=== PATIENT | male | born 2000 | race African-American/Black ===

== ENCOUNTER 2022-10-12 10:16 | Emergency (ER) | payer OTHER, SELFPAY ==
[2022-10-12 10:32] VITALS: BP 126/79; PULSE 61; RESP 17; TEMP 36.2; O2SAT 99
--- NOTE | 2022-10-12 10:33 | ED.SKABFB ---
HPI - Skin/Abscess/Foreign Bdy General Chief complaint: Skin/Abscess/Foreign Body Stated complaint: Rash on face and foot Time Seen by Provider: 10/12/22 10:34 Source: patient Mode of arrival: ambulatory Limitations: no limitations History of Present Illness HPI narrative: Gerald is a 22-year-old male patient presenting to the clinic with complaints of a rash on his face, hands, and on his foot. He reports the rash on his foot is now draining, red, and swollen. States it is painful to walk. Has itchy rash on bilateral hands and around bilateral eyes. Denies any new environmental changes. History of eczema. Related Data Allergies Allergy/AdvReac Type Severity Reaction Status Date / Time No Known Allergies Allergy Verified 10/12/22 10:32 Review of Systems Review of Systems: Pertinent positives per HPI. Patient denies any fever, chills, headache, visual changes, dizziness, cough, runny nose, sore throat, shortness of breath, chest pain, palpitations, nausea, vomiting, diarrhea, constipation, abdominal pain, or any urinary issues. PMFSH Comments At the time of my signature, I reviewed and agree with the nursing past medical, surgical, social, and family history. There is no relevant family history pertinent to the patient complaint. Exam Narrative: General: Well-developed, well nourished, in no apparent distress Head: Normocephalic, atraumatic. Cardio: Regular rate and rhythm, s1 and s2 normal, no murmur appreciated. Resp: Clear to auscultation bilaterally, no rhonchi, rales, wheezing or rubs. Integumentary: [place], warm, and dry, scaly itchy dry rash to bilateral upper and lower eyelids, bilateral hands, and right medial plantar foot-rash to the foot is red with mild swelling and induration- no active drainage. Mild tenderness to palpation Course Course Emergency Course: Portions of this record may have been created with voice recognition software. Level of Care: Express Care Visit Vital Signs Vital signs: Vital signs reviewed MDM - Skin/Abscess/Foreign Bdy MDM Narrative Medical decision making narrative: At the time of visit patient is resting comfortably on the exam table. I suspect patient may have a secondary infection to his right foot due to scratching his dermatitis. Patient has dermatitis to bilateral eyelids and hands. Will send in prescription for some triamcinolone cream, doxycycline, and mupirocin cream. Supportive measures were discussed with the patient he voiced understanding discharge instructions agrees to treatment plan. Differential Diagnosis Differential diagnosis: Likely abscess of skin or subcutaneous tissue, urticaria, cellulitis, eczema, insect bites and contact dermatitis Discharge Plan Discharge Clinical Impression: Allergic dermatitis of upper and lower lids of both eyes, Atopic dermatitis of both hands, Skin infection Patient Disposition: Home, Self-Care Condition: Stable Instructions: Antibiotic Form, Wound Infection (ED), Dermatitis (ED) Additional Instructions: Apply triamcinolone cream as directed-face and hands Apply mupirocin cream as directed to your right foot Take doxycycline as prescribed Avoid hot showers Moist dry skin twice daily using Cetaphil, Lubriderm, or Aquaphor lotion Avoid scratching and this can cause infection May take benadryl 25-50mg every 6 hours as needed for itching. Follow up with your PCP in 3-5 days if symptoms persist or sooner if they worsen Go to the Emergency Room if symptoms worsen- fever, rash spreading with treatment, shortness of breath, tongue swelling, drooling, or chest pain Prescriptions: New triamcinolone acetonide 0.1 % cream 1 applic topical BID 7 Days Qty: 30 0RF mupirocin 2 % ointment 1 applic topical BID 7 Days Qty: 22 0RF doxycycline hyclate 100 mg capsule 100 mg PO BID 7 Days Qty: 14 0RF Follow-up/Referrals: PHYSICIAN,[employer] [employer] [Primary Care Provider] - Time of Disposition: 1
== END 2022-10-12 10:54 | disposition home or self-care (01) ==
PROVIDERS: Emergency Provider Nurse Practitioner Family
DX: L23.9 Allergic contact dermatitis, unspecified cause (principal); L20.9 Atopic dermatitis, unspecified; L08.9 Local infection of the skin and subcutaneous tissue, unspecified
CPT/HCPCS: 99213; G0463

== ENCOUNTER 2022-12-06 13:10 | Emergency (ER) | payer OTHER, SELFPAY | END 2022-12-06 15:50 | disposition home or self-care (01) | LOC: EXPCOLL 12-14 11:20 | PROVIDERS: Emergency Provider Registered Nurse | DX: K29.70 Gastritis, unspecified, without bleeding (principal) | CPT/HCPCS: 99211; G0463 ==

== ENCOUNTER 2022-12-09 18:09 | Emergency (ER) | payer OTHER, SELFPAY ==
[2022-12-09 18:20] VITALS: BP 131/69; PULSE 54; RESP 18; TEMP 38; O2SAT 98
--- NOTE | 2022-12-09 18:34 | ED.MALEGU ---
HPI - Male Genitourinary General Chief complaint: Urogenital-Male Stated complaint: STD Time Seen by Provider: 12/09/22 18:28 Source: patient and RN notes reviewed Mode of arrival: ambulatory Limitations: no limitations History of Present Illness HPI Narrative: Patient presents today complaining of a 1-2 day history of dysuria. Denies any additional symptoms to include scrotal pain or swelling, urethral discharge, penile or scrotal sores, or any additional symptoms. He has had unprotected intercourse with 1 female partner for the past month. No history of STIs in the past. Related Data Allergies Allergy/AdvReac Type Severity Reaction Status Date / Time No Known Allergies Allergy Verified 12/09/22 18:30 Review of Systems Review of Systems: CONSTITUTIONAL: Denies body aches, fever, chills, or sweats. EYES: Denies visual changes, redness, or discharge. ENT: Denies rhinorrhea, congestion, sore throat, or otalgia. CARDIOVASCULAR: Denies chest pain, palpitations, or edema. RESPIRATORY: Denies cough or dyspnea. GASTROINTESTINAL: Denies abdominal pain, nausea, vomiting, or diarrhea. GENITOURINARY: Denies hematuria.+ dysuria SKIN: Denies rash, itching, or wounds. MUSCULOSKELETAL: Denies back pain, joint pain, or myalgia. NEUROLOGIC: Denies headache, numbness, tingling, or weakness. PSYCH: Denies depression or anxiety. PMFSH Comments At time of signature, I have reviewed and agree with nursing past medical, surgical, social and family history unless otherwise noted. Please see nursing chart for further information. There is no relevant family history pertinent to the presenting complaint Exam Narrative: GENERAL: Well-appearing, well-nourished, and in no acute distress. HEAD: Normocephalic, atraumatic. EYES: EOMI. No redness or drainage. Conjunctivae normal. ENT: Mucous membranes pink and moist. NECK: Normal AROM. CHEST: No respiratory distress. : erythematous urethral meatus noted. No external lesions. No swelling of the testicles or scrotum. No erythema of the scrotum noted. No urethral discharge noted. MUSCULOSKELETAL: No bony tenderness. EXTREMITIES: Normal range of motion. No edema. SKIN: Warm, dry, no rash. Capillary refill normal. Normal skin turgor. NEURO: No focal deficits. Alert and oriented x3. Gait steady. PSYCH: Normal affect. No signs of depression or anxiety. Course Course Level of Care: Express Care Visit Vital Signs Vital signs: Vital Signs Temperature 100.4 F H 12/09/22 18:20 Pulse Rate 54 L 12/09/22 18:20 Respiratory Rate 18 12/09/22 18:20 Blood Pressure 131/69 12/09/22 18:20 Pulse Oximetry 98 12/09/22 18:20 Oxygen Delivery Room Air 12/09/22 18:20 Temperature 100.4 F H 12/09/22 18:20 Pulse Rate 54 L 12/09/22 18:20 Respiratory Rate 18 12/09/22 18:20 Blood Pressure 131/69 12/09/22 18:20 Pulse Oximetry 98 12/09/22 18:20 Oxygen Delivery Room Air 12/09/22 18:20 Reviewed. Pt has been instructed to follow up with his PCP regarding his elevated blood pressure today. MDM - Male Genitourinary MDM Narrative Medical decision making narrative: Test pending for gonorrhea, chlamydia, Trichomonas. Will treat with Rocephin, doxycycline, and Flagyl. Discussed abstinence until tests result. Anticipatory guidance given. Differential Diagnosis Differential diagnosis: Likely urinary tract infection, urethritis and other (Gonorrhea, chlamydia, Trichomonas) Lab Data Labs: Lab Results 12/09/22 Range/Units 18:22 C.trachomatis RNA (TMA) Pending N.gonorrhoeae RNA (TMA) Pending T. vaginalis Amp RNA Pending Critical Care Time Critical Care Time Critical Care Time: No Discharge Plan Discharge Clinical Impression: Concern about STD in male without diagnosis Patient Disposition: Home, Self-Care Condition: Stable Instructions: Chlamydia (ED), Gonorrhea (ED), Trichomoniasis (ED) Additional Instructions: Your
[2022-12-09] MEDS: cefTRIAXone 500 MG, LIDOCAINE HCL 1% LOCAL INJ 1 ML IM (18:45)
== END 2022-12-09 19:05 | disposition home or self-care (01) ==
PROVIDERS: Emergency Provider Nurse Practitioner
DX: Z20.2 Contact with and (suspected) exposure to infections with a predominantly sexual mode of transmission (principal)
CPT/HCPCS: 87491; 87591; 87661; 96372; 99213; G0463; J0696

== ENCOUNTER 2023-02-25 14:27 | Emergency (ER) | payer OTHER, SELFPAY ==
--- NOTE | 2023-02-25 14:30 | ED.FEMALEGU ---
HPI - Female Genitourinary General Chief complaint: Urogenital-Male Stated complaint: STD Related Data Allergies Allergy/AdvReac Type Severity Reaction Status Date / Time No Known Allergies Allergy Verified 12/09/22 18:30 Discharge Plan Discharge Prescriptions: No Action doxycycline hyclate 100 mg tablet 100 mg PO BID 7 Days Qty: 14 0RF metronidazole 500 mg tablet 500 mg PO Q12H 7 Days Qty: 14 0RF Follow-up/Referrals: UNKNOWN,DOCTOR [Primary Care Provider] -
--- NOTE | 2023-02-25 14:40 | ED.MALEGU ---
HPI - Male Genitourinary General Chief complaint: Urogenital-Male Stated complaint: STD Time Seen by Provider: 02/25/23 14:50 Source: patient and RN notes reviewed Mode of arrival: ambulatory Limitations: no limitations History of Present Illness HPI Narrative: 22-year-old male presents with concern for possible exposure to Trichomonas. Reports he was told by a partner he was exposed to that. He denies any symptoms. MD Complaint: possible STD exposure Related Data Allergies Allergy/AdvReac Type Severity Reaction Status Date / Time No Known Allergies Allergy Verified 12/09/22 18:30 Review of Systems Review of Systems: CONSTITUTIONAL: Denies malaise, chills, sweats, or fever. CARDIOVASCULAR: Denies chest pain, palpitations, or edema. RESPIRATORY: Denies cough or dyspnea. GASTROINTESTINAL: Denies abdominal pain, nausea, vomiting, diarrhea GENITOURINARY: Denies dysuria, frequency, urgency, suprapubic pressure. Denies flank pain or hematuria. SKIN: Denies rash or itching. MUSCULOSKELETAL: Denies back pain or myalgia. All systems reviewed & are unremarkable except as noted in HPI and below PMFSH Comments At time of signature, agree with nursing past medical, surgical, social and family history. There is no relevant family history pertinent to the presenting complaint Exam Narrative: GENERAL: Well-appearing, well-nourished, and in no acute distress. HEAD: Normocephalic. EYES: PERRLA, conjunctivae clear. NECK: Supple. No lymphadenopathy CHEST: Clear to auscultation. No respiratory distress. HEART: Regular rate and rhythm. SKIN: Warm, dry, no rash. NEURO: Alert and oriented x3. PSYCH: Normal mood and affect Course Course Emergency Course: Patient was given the choice to be treated for all 3 STDs today or wait for results, he chooses to wait for results only be treated for trich which he was possibly exposed to. Discussed at length comprehensive STD testing and safe sex practices. Patient is aware of diagnosis, understands and agrees to treatment plan. Anticipatory guidance given. Patient agrees to follow-up as directed and is aware of reasons to seek care at the emergency department. Portions of this record may have been created with voice recognition software Level of Care: Express Care Visit Vital Signs Vital signs: Reviewed. MDM - Male Genitourinary MDM Narrative Medical decision making narrative: Exam findings show no acute concerns or changes; patient is non-toxic appearing and is in no distress. Patient is appropriate for outpatient treatment and follow-up. Critical Care Time Critical Care Time Critical Care Time: No Discharge Plan Discharge Clinical Impression: Possible exposure to STD Patient Disposition: Home, Self-Care Condition: Stable Instructions: Antibiotic Form, Safe Sex Practices (ED) Additional Instructions: You have been tested for potential gonorrhea, chlamydia, and trichomoniasis today. A prescription has been called into your pharmacy to treat trichomoniasis. You will receive a phone call in 2-3 days with the results of today's testing and if your positive for gonorrhea or chlamydia you will need further treatment which may include returning here for an injection. It is very important that you avoid unprotected intercourse during treatment and for 7 days AFTER TREATMENT is complete and until your partner(s) have been treated. Please encourage your partner(s) to seek testing and treatment. When you have been exposed to sexually transmitted infections, it is important that you seek comprehensive testing, since we do not provide testing for all sexually transmitted infections. Some infections can have no symptoms, but cause serious health problems. Contact your health care provider or report to the emergency department if: You have genital swelling or pain, or unusual bleeding. You have joint pain, rash, swollen lymph nodes or night sweats. You are severe abdominal ana m
[2023-02-25 14:41] VITALS: BP 139/90; PULSE 54; RESP 18; TEMP 37; O2SAT 98
[2023-02-25 14:49] VITALS: BP 139/90; PULSE 54; RESP 18; TEMP 37; O2SAT 98
[2023-02-26 06:02] LABS: Trichomonas Vag PCR NOT DETECTED (NOT DETECTE)
[2023-02-26 06:27] LABS: Chlamydia trachomatis NOT DETECTED (NOT DETECTE); Neisseria gonorrhoeae PCR NOT DETECTED (NOT DETECTE)
== END 2023-02-25 15:06 | disposition home or self-care (01) ==
PROVIDERS: Emergency Provider Nurse Practitioner
DX: Z71.1 Person with feared health complaint in whom no diagnosis is made (principal)
CPT/HCPCS: 81003; 87086; 87088; 87491; 87591; 87661; 99213; G0463